=== PATIENT | female | born 1990 | race Two or more races ===

== ENCOUNTER → 2018-08-03 | Outpatient (CLI) | payer MEDICAID | END | disposition home or self-care (01) | LOC: CFH 08:04 → EDSTATUS 08:30 | PROVIDERS: ATTEND Nurse Practitioner Family | DX: R10.13 Epigastric pain (principal) | CPT/HCPCS: 74150 ==

== ENCOUNTER 2018-10-31 10:29 | Day surgery (SDC) | payer MEDICAID ==
[~2018-10-31] VITALS: Ht 162.6 cm; Wt 68.2 kg
[~2018-10-31 10:29] MED LIST: LEVO25TA4 PO; [UNRECOGNIZED DRUG - CODE] PO
[2018-10-31] MEDS ORDERED: LACTATED RINGERS 1,000 ML IV SCH (10:58)
[2018-10-31] MEDS ORDERED: ACETAMINOPHEN 500 MG TABLET PO ONE (11:00)
[2018-10-31] MEDS ORDERED: SCOPOLAMINE PATCH, 1.5MG PATCH.TD72 TD ONE (11:00)
[2018-10-31] MEDS ORDERED: DIAZEPAM 5 MG TABLET PO ONE (11:00)
[2018-10-31 11:21] VITALS: BP 133/88
[2018-10-31 11:49] LABS: HCG UR SG 1.012 (1.003-1.030)
[2018-10-31] MEDS ORDERED: EPINEPHRINE 1 MG/ML, 1ML ONE (12:59)
[2018-10-31] MEDS ORDERED: BUPIVACAINE/PF 0.25% ONE (12:59)
[2018-10-31] MEDS ORDERED: MIDAZOLAM 1 MG/ML, 2ML ONE (13:11)
[2018-10-31] MEDS ORDERED: FENTANYL PF 250 MCG/5ML ONE (13:13)
[2018-10-31] MEDS ORDERED: ONDANSETRON 2MG/ML, 2ML ONE ×2 (13:14→13:17)
[2018-10-31] MEDS ORDERED: CEFAZOLIN 1,000 MG ONE ×2 (13:14→13:17)
[2018-10-31] MEDS ORDERED: SUCCINYLCHOLINE 20 MG/ML, 10ML ONE (13:14)
[2018-10-31] MEDS ORDERED: DEXAMETHASONE 4 MG/ML, 1ML ONE ×2 (13:14→13:17)
[2018-10-31] MEDS ORDERED: ROCURONIUM 10MG/ML,5ML ONE (13:14)
[2018-10-31] MEDS ORDERED: PROPOFOL 10 MG/ML, 20ML ONE (13:14)
[2018-10-31] MEDS ORDERED: GLYCOPYRROLATE 0.2MG/1ML, 5ML ONE (13:18)
[2018-10-31] MEDS ORDERED: NEOSTIGMINE 1 MG/ML, 10ML ONE (13:18)
[2018-10-31] MEDS ORDERED: BUPIVACAINE/PF-EPI 0.25% 1:200K INFIL ONE (13:37)
[2018-10-31] MEDS ORDERED: ONDANSETRON ODT 8 MG PO PRN (14:30)
[2018-10-31] MEDS ORDERED: PROMETHAZINE 12.5 MG SUPP PR PRN (14:30)
[2018-10-31] MEDS ORDERED: ONDANSETRON 2MG/ML, 2ML IV PRN (14:30)
[2018-10-31] MEDS ORDERED: HALOPERIDOL 5 MG/ML IV PRN (14:30)
[2018-10-31] MEDS ORDERED: FENTANYL PF 100 MCG/2ML IV PRN (14:30)
[2018-10-31] MEDS ORDERED: MIDAZOLAM 1 MG/ML, 2ML IV PRN (14:30)
[2018-10-31] MEDS ORDERED: ALBUTEROL SULFATE 2.5 MG/3 ML NPPB PRN (14:30)
[2018-10-31] MEDS ORDERED: LABETALOL 5MG/ML, 20ML IV PRN (14:30)
[2018-10-31] MEDS ORDERED: OXYcodone 5 MG/5 ML ORAL.SOL UDC PO PRN (14:30)
[2018-10-31] MEDS ORDERED: MEPERIDINE/PF 25MG/0.5ML IVPush PRN (14:30)
[2018-10-31] MEDS ORDERED: MORPHINE SULFATE 4 MG/ML, 1ML IVPush PRN (14:30)
[2018-10-31] MEDS ORDERED: DIAZEPAM 5 MG/ML, 2ML IVPush PRN (14:30)
[2018-10-31] MEDS ORDERED: hydrALAzine 20 MG/ML, 1ML IV PRN (14:30)
[2018-10-31] MEDS ORDERED: HYDROmorphone 2 MG/ML, 1ML IVPush PRN (14:30)
[2018-10-31] MEDS ORDERED: PROMETHAZINE 25 MG/ML, 1ML IV PRN (14:30)
[2018-10-31] MEDS ORDERED: EPHEDRINE 50 MG/ML, 1ML IVPush PRN (14:30)
[2018-10-31] MEDS ORDERED: KETOROLAC 30 MG/1 ML ONE (14:31)
[2018-10-31] MEDS ORDERED: FENTANYL PF 100 MCG/2ML ONE (14:45)
[2018-10-31] MEDS ORDERED: OXYcodone 5 MG/5 ML ORAL.SOL UDC ONE (14:45)
[2018-10-31] MEDS ORDERED: KETOROLAC 30 MG/1 ML IVPush ONE (15:00)
== END 2018-10-31 17:10 | disposition home or self-care (01) ==
LOC: OUT 10:29
PROVIDERS: ATTEND Surgery
DX: K81.1 Chronic cholecystitis (principal); K82.8 Other specified diseases of gallbladder
CPT/HCPCS: 36415; 47562; 81025; 84703; 88304; J0171; J0330; J0690; J1100; J1885; J2250; J2405; J2704; J2710; J3010; J3490

== ENCOUNTER → 2019-08-16 | Outpatient (CLI) | payer MEDICAID | END | disposition home or self-care (01) | LOC: CFH 13:09 | PROVIDERS: ATTEND Internal Medicine Cardiovascular Disease | DX: R00.2 Palpitations (principal) | CPT/HCPCS: 93306 ==